=== PATIENT | male | born 1955 | race Caucasian/White ===

== ENCOUNTER 2024-01-16 11:35 | Emergency (ER) | payer BC, SELFPAY ==
[2024-01-16 11:37] VITALS: BP 173/99
--- NOTE | 2024-01-16 12:38 | ED.MUSCINJ ---
HPI-Injury
General
Chief Complaint: Musculo-Skeletal Complaint
Source: patient
Exam Limitations: none
Time Seen by Provider: 01/16/24 12:11
Travel History
Have you had any contact with someone who has COVID-19?: No
Do you have any symptoms of coronavirus? Fever > 100 degrees, chills, cough, shortness of breath, sore throat, loss of taste or smell, muscle aches, or headache?: No
History of Present Illness-Injury
Initial Injury comments:
68-year-old male presents complaining of increased and persistent left-sided chest wall pain after a fall he sustained 3 weeks ago while rollerblading. He is not anticoagulated. He complains of pain to left chest wall worse with deep breathing and
motion. No hematuria. No abdominal pain. No other complaints at this time
Past History
Past History
ED Past Medical History: NIDDM and Other (IBS)
ED Past Surgical History: Other (Epididymal cyst surgery years ago)
Social History
Personal:
Living: with family
Employment: Employed
Phy Exam
Physical Exam
Physical Exam:
General: Well-appearing male no acute respiratory distress
HEENT: Normocephalic atraumatic
Heart: Regular rate and rhythm no murmurs
Lungs: Breath sounds heard throughout
Musculoskeletal exam: Left lateral chest wall is tender without step-off or deformity
Abdomen: Soft nontender nondistended no guarding or rebound
Injury Course
Orders/Labs/Results
Orders:
Orders
01/16/24 11:58
CR Ribs-left 3 Vw W/pa Chest Urgent
Comment:
Reason For Exam: injury
MDM/Problems Addressed
Differential Diagnosis Includes:
Left chest wall pain after fall. Consider rib fracture versus pneumothorax versus contusion
X-rays left ribs pending
*Critical Care Note
Total Time (30-74mins, 75-104mins- exclusive of procedures): Not Applicable
Update Note
Update Note:
I have personally visualized x-rays of the left ribs and reviewed radiology report. There is no acute rib fracture or pneumothorax. Patient reassured. Suspect underlying chest wall strain. Stable for discharge
ED Attending Note
-
Portions of this chart may have been created with voice recognition software.� Occasional wrong word or��sound alike� substitutions may have occurred due to the inherent limitations of voice recognition software.
Discharge Plan
Departure
Patient Disposition: Home (Routine Discharge)
Date of Disposition: 01/16/24
Time of Disposition: 12:41
Patient with high blood pressure during this ER visit?: No
Discharge Problem:
Strain of chest wall
Instructions: Muscle and Bone Pain (DC)
Prescriptions:
No Action
amitriptyline 10 MG tablet
25 mg PO BID
simvastatin 20 MG tablet
40 mg PO QPM
esomeprazole magnesium [Nexium] 40 MG capsule,delayed release(DR/EC)
40 mg PO DAILY
saxagliptin [Onglyza] 5 MG tablet
5 mg PO DAILY
Trilipix Dr
135 DAILY
Patient Comments:
no unit strength listed
Androgel
DAILY
sildenafil [Viagra] 25 MG tablet
PRN (Reason: sexual need)
Patient Comments:
may take 25 or 50 mg
glimepiride 2 MG tablet
2 mg PO DAILY
valsartan-hydrochlorothiazide [Diovan HCT] 1 EACH tablet
1 ea PO DAILY
cholecalciferol (vitamin D3) 2,000 UNITS tablet
2,000 unit PO BID
saxagliptin [Onglyza] 5 MG tablet
5 mg PO DAILY
multivitamin [Daily Multi-Vitamin] 1 EACH tablet
aspirin 325 MG tablet,delayed release (DR/EC)
325 mg PO DAILY
Referrals:
Kenneth Schafer DO [Family Provider] -
Activity Restrictions/Additional Instructions:
Continue with ibuprofen and Tylenol for pain. Return here for worsening symptoms otherwise follow-up with family doctor
Interventions
Interventions:
*Risk Screen - Suicide Last Done: 01/16/24 11:56
*General Assessment Last Done: 01/16/24 11:56
*Neglect/Abuse Screening Last Done: 01/16/24 11:56
ED- Fall Risk Assessment Last Done: 01/16/24 11:56
*ED COVID-19 Vaccine History Last Done: 01/16/24 11:37
ED-Musculoskeletal Assessment Last Done: 01/16/24 11:56
Discharge Date and Time
Print Language: ARMENIAN
[2024-01-16 13:10] VITALS: BP 156/72
== END 2024-01-16 13:18 | disposition home or self-care (01) ==
LOC: EMR 11:35
PROVIDERS: EMERGENCY PHYSICIAN Emergency Medicine; FAMILY PHYSICIAN Family Medicine
DX: S29.011A Strain of muscle and tendon of front wall of thorax, initial encounter (principal); Y93.51 Activity, roller skating (inline) and skateboarding; E11.9 Type 2 diabetes mellitus without complications; K58.9 Irritable bowel syndrome, unspecified
CPT/HCPCS: 99283; 71101

== ENCOUNTER → 2024-08-14 08:16 | Outpatient (REF) | payer BC, SELFPAY | LOC: RCS 08:16 | PROVIDERS: ATTENDING PHYSICIAN Internal Medicine Cardiovascular Disease; FAMILY PHYSICIAN Family Medicine | DX: R07.89 Other chest pain (principal); I10 Essential (primary) hypertension; E78.2 Mixed hyperlipidemia; E11.9 Type 2 diabetes mellitus without complications; R06.09 Other forms of dyspnea | CPT/HCPCS: 93017; 93350 ==